=== PATIENT | female | born 1975 ===

== ENCOUNTER → 2017-12-30 | Outpatient (REF) | payer OTHER ==
[~2017-12-30] MED LIST: ALB18R INH; ALBU8.5H IH; HYDR-317 PO; IBUP-136 PO
[2017-12-30 18:07] LABS: PLATELET COUNT, AUTOMATED 359 K/uL (150-450)
== END ==
PROVIDERS: ATTEND Nurse Practitioner Family
DX: R07.9 Chest pain, unspecified (principal)
CPT/HCPCS: 82040; 82247; 82310; 82374; 82435; 82565; 82947; 84075; 84132; 84155; 84295; 84450; 84460; 84484; 84520; 85025; 85379

== ENCOUNTER → 2018-05-17 | Outpatient (CLI) | payer OTHER ==
--- NOTE | 2018-05-17 15:14 | RADIOLOGY IMAGING REPORT ---
FACILITY: [facility] PATIENT NAME: Herlinda William : 1975 MR: [id number] V: [id number] EXAM DATE: ORDERING PHYSICIAN: TIARA GREENE TECHNOLOGIST: Location: [facility] Patient: Herlinda William : 1975 Visit/Account:[id number] Date of Sevice: 05/17/2018 THYROID HISTORY: Thyroid nodules COMPARISON: October 19, 2016 FINDINGS: SIZE: Right lobe: 5.3 x 1.4 x 1.4 cm Left lobe: 4.5 x 1.2 x 1.6 cm Isthmus: 2.5 mm PARENCHYMA: Homogeneous. NODULES: Right lobe: * None discrete. Left lobe: * None discrete. Isthmus: * None discrete. VASCULARITY: Within normal limits. ADDITIONAL FINDINGS: None. IMPRESSION: Unremarkable thyroid ultrasound. The previously noted small hypoechoic nodule medial aspect of the r ight lobe is not seen on the current examination REFERENCE: 2015 [employer] [employer] Management Guidelines for Adult Patients with Thyroid Nodules and D ifferentiated Thyroid Cancer: The [place] [employer] Guidelines Task Force on Thyroid Nodul es and Differentiated Thyroid Cancer. SONOGRAPHIC PATTERNS: * Benign: Purely cystic nodules (no solid component); estimated risk of malignancy <1 percent; no bi opsy recommended. * Very Low Suspicion: Spongiform or partially cystic nodules without any of the sonographic features described in low, intermediate, or high suspicion patterns; estimated risk of malignancy <3 percent; consider FNA at > 2 cm (Observation without FNA is also a reasonable option). * Low Suspicion: Isoechoic or hyperechoic solid nodule, or partially cystic nodule with eccentric so lid areas, without microcalcification, irregular margin or ETE (extra-thyroidal extension), or taller than wide shape; estimated risk of malignancy 5-10 percent; recommend FNA at >1.5 cm. * Intermediate Suspicion: Hypoechoic solid nodule with smooth margins without microcalcifications, E TE (extra-thyroidal extension), or taller than wide shape; estimated risk of malignancy 10-20 percent ; recommend FNA at > 1 cm. * High Suspicion: Solid hypoechoic nodule or solid hypoechoic component of a partially cystic nodule with one or more of the following features: irregular margins (infiltrative, microlobulated), microc alcifications, taller than wide shape, rim calcifications with small extrusive soft tissue component, evidence of ETE (extra-thyroidal extension); estimated risk of malignancy >70-90 percent; recommend FNA at > 1 cm. NOTES: * Although a sonographically suspicious subcentimeter thyroid nodule without evidence of extrathyroi netta extension or sonographically suspicious lymph nodes may be observed with close sonographic follow -up rather than pursuing immediate FNA, patient age and preference may modify decision-making. A > 50% interval increase in nodule volume and/or development of new suspicious sonographic features are felt to be a valid reasons for potential re-aspiration of a nodule previously shown to have benig n FNA cytology. Report Dictated By: Mariluz Zavaleta MD at 05/17/2018 3:06 PM Report E-Signed By: Mariluz Zavaleta MD at 05/17/2018 3:09 PM WSN:[id number]
--- NOTE | 2018-05-18 08:37 | RADIOLOGY IMAGING REPORT ---
FACILITY: PATIENT NAME: KYRA JOHNSON : [id number] MR: [id number] V: [id number] EXAM DATE: [id number] ORDERING PHYSICIAN: TIARA GREENE TECHNOLOGIST: Shakila Bales PROCEDURE:BILATERAL DIGITAL SCREENING MAMMOGRAM WITH CAD ASSISTED INTERPRETATION & 3D TOMOSYNTHESIS COMPARISON:None baseline mammogram. INDICATIONS:SCREENING FINDINGS: The breasts are extremely dense which lowers the sensitivity of mammography. Just medial to midline in the anterior 1/3 of the Right breast on the Right CC view there is a focal asymmetry for which Spot compression view is recommended. In the upper outer quadrant of the Left breast anterior 1/3 appear to be 2 lobular densities for which Left breast Ultrasound is recommended. DIAGNOSTIC CATEGORY 0--INCOMPLETE: NEED ADDITIONAL IMAGING EVALUATION. RECOMMENDATIONS: ADDITIONAL MAMMOGRAPHIC VIEWS REQUIRED: RIGHT BREAST. ULTRASOUND: LEFT BREAST. IMPRESSION: BIRADS 0: Incomplete. Left breast Ultrasound and additional views of the Right breast recommended as described. Dictated by: Mariluz Zavaleta M.D. on 05/17/2018 at 17:03 Transcribed by: ROD on 05/18/2018 at 8:06 Approved by: Mariluz Zavaleta M.D. on 05/18/2018 at 8:36 [facility]
== END ==
LOC: US 00:57
PROVIDERS: ATTEND Obstetrics & Gynecology
DX: Z12.31 Encounter for screening mammogram for malignant neoplasm of breast (principal); R92.8 Other abnormal and inconclusive findings on diagnostic imaging of breast; E04.1 Nontoxic single thyroid nodule
CPT/HCPCS: 76536; 77063; 77067

== ENCOUNTER → 2018-06-10 | Outpatient (CLI) | payer OTHER ==
--- NOTE | 2018-06-16 08:32 | RADIOLOGY IMAGING REPORT ---
FACILITY: [facility] [place] PATIENT NAME: KYRA JOHNSON : [id number] MR: [id number] V: [id number] EXAM DATE: [id number] ORDERING PHYSICIAN: TIARA GREENE TECHNOLOGIST: Shakila Bales PROCEDURE:RIGHT DIGITAL DIAGNOSTIC MAMMOGRAM WITH CAD ASSISTED INTERPRETATION & 3D TOMOSYNTHESIS COMPARISON:None. INDICATIONS:further evaluation FINDINGS: Combined on other report. DIAGNOSTIC CATEGORY 1--NEGATIVE. RECOMMENDATIONS: ROUTINE MAMMOGRAM AND CLINICAL EVALUATION IN 1 YR. IMPRESSION: BIRADS 1: Negative. Dictated by: Alon Hawkins M.D. on 06/10/2018 at 15:24 Transcribed by: ROD on 06/10/2018 at 15:29 Approved by: Mariluz Zavaleta M.D. on 06/16/2018 at 8:31 [facility]
--- NOTE | 2018-06-16 08:32 | RADIOLOGY IMAGING REPORT ---
FACILITY: [facility] PATIENT NAME: KYRA JOHNSON : [id number] MR: [id number] V: [id number] EXAM DATE: [id number] ORDERING PHYSICIAN: TIARA GREENE TECHNOLOGIST: Xander Simpson RDMS, RDCS PROCEDURE:US RIGHT BREAST COMPARISON:None. INDICATIONS:further evaluation FINDINGS: Combined on other report. DIAGNOSTIC CATEGORY 2--BENIGN FINDING. RECOMMENDATIONS: ROUTINE MAMMOGRAM AND CLINICAL EVALUATION. IMPRESSION: BIRADS 2: Benign finding. Dictated by: Alon Hawkins M.D. on 06/10/2018 at 15:25 Transcribed by: ROD on 06/10/2018 at 15:30 Approved by: Mariluz Zavaleta M.D. on 06/16/2018 at 8:32 [facility]
--- NOTE | 2018-06-16 08:33 | RADIOLOGY IMAGING REPORT ---
FACILITY: [facility] [place] PATIENT NAME: KYRA JOHNSON : [id number] MR: [id number] V: [id number] EXAM DATE: [id number] ORDERING PHYSICIAN: TIARA GREENE TECHNOLOGIST: Xander Simpson RDMS, RDCS PROCEDURE:US LEFT BREAST COMPARISON:None. INDICATIONS:further evaluation FINDINGS: Combined on other report. DIAGNOSTIC CATEGORY 2--BENIGN FINDING. RECOMMENDATIONS: ROUTINE MAMMOGRAM AND CLINICAL EVALUATION. IMPRESSION: BIRADS 2: Benign finding. Dictated by: Alon Hawkins M.D. on 06/10/2018 at 15:23 Transcribed by: ROD on 06/10/2018 at 15:31 Approved by: Mariluz Zavaleta M.D. on 06/16/2018 at 8:32 [facility]
== END ==
LOC: MAMO 01:11
PROVIDERS: ATTEND Obstetrics & Gynecology
DX: R92.2 Inconclusive mammogram (principal)
CPT/HCPCS: 77061; 77065

== ENCOUNTER → 2018-08-08 | Outpatient (CLI) | payer OTHER | LOC: LAB 16:18 | PROVIDERS: ATTEND Family Medicine | DX: Z02.89 Encounter for other administrative examinations (principal) | CPT/HCPCS: 36415; 86480; 86592; 87491; 87591 ==